=== PATIENT | male | born 1980 | race Caucasian/White ===

== ENCOUNTER 2018-10-10 18:50 | Emergency (ER) | payer BC ==
[2018-10-10 19:07] VITALS: BP 129/72
[2018-10-10] MEDS ORDERED: Al Hydrox/Mg Hydrox/Simet LIQ* 30 ML UDC PO ONE (19:30)
--- NOTE | 2018-10-10 19:37 | UC ---
Abdominal Pain Male HPI - HPI Summary HPI Summary: 38-year-old male comes in with a chief complaint of epigastric pain. Patient woke up with the pain 2 days ago. It's in the epigastrium it does not radiate into the chest. Pain was severe initially it's been waxing and waning since then. His been time with the pain goes away completely. Over the last 3 days the pain has gradually decreased until he was essentially pain-free today. However about an hour ago she had the pain come back and be severe. Patient has no appetite when the pain comes. He has not vomited. Reports normal bowel normal urine no blood seen in the stool low black stools. Denies any chest pain or shortness of breath. When he first started he felt like he was having fevers chills. No fevers and chills today. He's had an appendectomy in the past that inguinal hernia repair. He still has his gallbladder. He does have a history of GERD and he takes Nexium 40 mg a day. He's had a history of stomach ulcer in the past. He had a similar episode about a year ago when he was [facility]. He was not sure what the diagnosis was then and it did get better on its own then. He reports he did an EKG that was normal. - History of Current Complaint Chief Complaint: UCGI Stated Complaint: ABD PAIN Time Seen by Provider: 10/10/18 19:16 Pain Intensity: 5 - Allergies/Home Medications Allergies/Adverse Reactions: Allergies Allergy/AdvReac Type Severity Reaction Status Date / Time No Known Allergies Allergy Verified 10/10/18 19:07 Home Medications: Home Medications Esomeprazole Magnesium [Nexium 24Hr] 2 tab PO DAILY 10/10/18 [History Confirmed 10/10/18] Finasteride [Propecia] 1 tab PO DAILY 10/10/18 [History Confirmed 10/10/18] Ibuprofen [Advil] 3 tab PO ONCE 10/10/18 [History Confirmed 10/10/18] PMH/Surg Hx/FS Hx/Imm Hx Previously Healthy: Yes GI/ History: Gastroesophageal Reflux, Ulcer - Surgical History Surgical History: Yes Surgery Procedure, Year, and Place: hernia repair 2010. appendectomy 1992 - Family History Known Family History: Positive: Non-Contributory - Social History Alcohol Use: None Substance Use Type: None Smoking Status (MU): Former Smoker When Did the Patient Quit Smoking/Using Tobacco: 2015 Review of Systems All Other Systems Reviewed And Are Negative: Yes Constitutional: Positive: Negative Skin: Positive: Negative Eyes: Positive: Negative ENT: Positive: Negative Respiratory: Positive: Negative Cardiovascular: Positive: Negative Gastrointestinal: Positive: Abdominal Pain Genitourinary: Positive: Negative Motor: Positive: Negative Neurovascular: Positive: Negative Musculoskeletal: Positive: Negative Neurological: Positive: Negative Psychological: Positive: Negative Is Patient Immunocompromised?: No Physical Exam Triage Information Reviewed: Yes Appearance: Well-Appearing, No Pain Distress, Well-Nourished Vital Signs: Initial Vital Signs Temp 98.5 F 10/10/18 18:59 Pulse 73 10/10/18 18:59 Resp 16 10/10/18 18:59 BP 129/72 10/10/18 18:59 Pulse Ox 100 10/10/18 18:59 Vital Signs Reviewed: Yes Eye Exam: Normal Eyes: Positive: Conjunctiva Clear Neck: Positive: Supple Respiratory: Positive: Lungs clear, Normal breath sounds, No respiratory distress Cardiovascular: Positive: RRR Abdomen Description: Positive: Other: - Mild tenderness in the epigastrium. No tenderness to palpation with Yeboah's sign. Positive bowel sounds. No tenderness in the lower abdomen. Neurological: Positive: Alert, Muscle Tone Normal Psychological: Positive: Age Appropriate Behavior Skin Exam: Normal Diagnostics - EKG Cardiac Rate: NL - at 1931 Cardiac Rhythm: Sinus: Normal - 60bpm Ectopy: None ST Segment: Normal Abd Pain Male Course/Dx - Course Course Of Treatment: I discussed the EKG with the patient. I do not see any ischemic changes. Patient denies any chest pain or concern of a heart attack. Patient is tender in the epigastrium. The location of his pain is in the epigastrium. Patient has history of ulcers is on Nexium 40 mg a day. I recommended increasing the dose to 40 mg twice a day. Also can take [id number] medicine such as Tums. He was nontender with Yeboah's sign. We discussed the different possibilities to include gallbladder problems stomach ulcers hiatal hernias and other possibilities. At this time in clinic we do not have ultrasound. We discussed that if his condition did not improve or worsened he needs further evaluation and care and emergency Department. - Differential Dx/Clinical Impression Provider Diagnosis: Epigastric pain Discharge - Sign-Out/Discharge Documenting (check all that apply): Patient Departure All imaging exams completed and their final reports reviewed: No Studies - Discharge Plan Condition: Stable Disposition: HOME Patient Education Materials: Epigastric Pain (ED) Referrals: Rafael Poon MD [Primary Care Provider] - Additional Instructions: FOLLOW UP WITH YOUR TALENT SOURCING SPECIALIST. GO TO THE EMERGENCY DEPARTMENT IF WORSE; PAIN, FEVER, YOU FEEL ILL, YOU FEEL LIKE PASSING OUT, BLOOD IN YOUR STOOL, SHORTNESS OF BREATH OR ANY QUESTIONS OR CONCERNS. - Billing Disposition and Condition Condition: STABLE Disposition: Home
== END 2018-10-10 19:58 | disposition home or self-care (01) ==
LOC: UCCORT 18:50
DX: R10.13 Epigastric pain (principal); K21.9 Gastro-esophageal reflux disease without esophagitis; Z87.891 Personal history of nicotine dependence
CPT/HCPCS: 93005; 99202; A9270-GY; G0463